=== PATIENT | female | born 1965 | race Caucasian/White ===

== ENCOUNTER → 2016-11-27 | Outpatient (CLI) | payer MEDICAID ==
[~2016-11-27] MED LIST: OMNIPAQUE 350 MG/ML, 75ML BOTTLE ONE
== END | disposition home or self-care (01) ==
LOC: CFH 11:21
PROVIDERS: ATTEND Internal Medicine Pulmonary Disease
DX: I28.1 Aneurysm of pulmonary artery (principal); R91.8 Other nonspecific abnormal finding of lung field; N28.1 Cyst of kidney, acquired; J98.4 Other disorders of lung; M47.892 Other spondylosis, cervical region; M47.894 Other spondylosis, thoracic region
CPT/HCPCS: 71260; 82565; Q9967

== ENCOUNTER → 2017-12-10 | Outpatient (CLI) | payer MEDICAID | END | disposition home or self-care (01) | LOC: CFH 13:09 | PROVIDERS: ATTEND Nurse Practitioner | DX: Z12.31 Encounter for screening mammogram for malignant neoplasm of breast (principal); Z12.2 Encounter for screening for malignant neoplasm of respiratory organs; I25.10 Atherosclerotic heart disease of native coronary artery without angina pectoris; F17.210 Nicotine dependence, cigarettes, uncomplicated | CPT/HCPCS: 77067; G0297 ==

== ENCOUNTER 2018-02-22 10:47 | Emergency (ER) | payer MEDICAID ==
[~2018-02-22] VITALS: Ht 167.6 cm; Wt 92.3 kg
[2018-02-22 10:53] VITALS: BP 145/84
[2018-02-22] MEDS ORDERED: CLINDAMYCIN 300 MG CAPSULE PO ONE (11:30)
[2018-02-22] MEDS ORDERED: KETOROLAC 30 MG/1 ML IM ONE (11:30)
[2018-02-22] MEDS ORDERED: KETOROLAC 30 MG/1 ML ONE (11:30)
[2018-02-22] MEDS ORDERED: CLINDAMYCIN 300 MG CAPSULE ONE (11:36)
== END 2018-02-22 12:25 | disposition home or self-care (01) ==
LOC: ED 12:19
DX: K02.9 Dental caries, unspecified (principal); I10 Essential (primary) hypertension; F17.290 Nicotine dependence, other tobacco product, uncomplicated
CPT/HCPCS: 96372; 99283; 99406; J1885

== ENCOUNTER 2019-09-05 18:47 | Emergency (ER) | payer MEDICAID ==
[~2019-09-05] VITALS: Ht 170.2 cm; Wt 94.3 kg
[2019-09-05 18:50] VITALS: BP 130/75
--- NOTE | 2019-09-05 19:18 | NUR ---
MANAGER CASH: PT. TO ROOM FROM LOBBY AT THIS TIME.
--- NOTE | 2019-09-05 20:00 | NUR ---
Pt here for upper right arm pain in axilla. Pt reports she feels something moving in there, is concerned its a blood clot. Pt has good distal pulse radial and ulnar.
--- NOTE | 2019-09-05 20:46 | NUR ---
Patient/Caregiver given discharge instructions and they have confirmed that they understand the instructions. Patient ambulatory with steady gait.
== END 2019-09-05 20:48 | disposition home or self-care (01) ==
LOC: ED 20:42
DX: M25.522 Pain in left elbow (principal); I10 Essential (primary) hypertension; F17.200 Nicotine dependence, unspecified, uncomplicated
CPT/HCPCS: 99284

== ENCOUNTER → 2020-07-18 | Outpatient (CLI) | payer MEDICAID | END | disposition home or self-care (01) | LOC: CFH 08:43 | PROVIDERS: ATTEND Nurse Practitioner | DX: Z12.2 Encounter for screening for malignant neoplasm of respiratory organs (principal); I25.10 Atherosclerotic heart disease of native coronary artery without angina pectoris; J84.10 Pulmonary fibrosis, unspecified; F17.210 Nicotine dependence, cigarettes, uncomplicated | CPT/HCPCS: 71271 ==

== ENCOUNTER → 2020-12-01 | Outpatient (CLI) | payer MEDICAID | END | disposition home or self-care (01) | LOC: CFH 07:55 | PROVIDERS: ATTEND Registered Nurse | DX: I08.8 Other rheumatic multiple valve diseases (principal); I11.9 Hypertensive heart disease without heart failure; R91.8 Other nonspecific abnormal finding of lung field; G47.33 Obstructive sleep apnea (adult) (pediatric); F17.210 Nicotine dependence, cigarettes, uncomplicated | CPT/HCPCS: 93306; 93356 ==